=== PATIENT | male | born 1980 | race Caucasian/White ===

== ENCOUNTER 2025-07-24 11:04 | Emergency (ER) | payer BC, SELFPAY ==
[2025-07-24 11:08] VITALS: BP 133/80
--- NOTE | 2025-07-24 11:23 | ED.GENMED ---
History of Present Illness
General
Chief Complaint: Cold/Flu/URI Symptoms
Source: patient
Exam Limitations: none
Time Seen by Provider: 07/24/25 11:20
Nursing documentation reviewed up to this point in time: agreed with
History of Present Illness
History of Present Illness:
Patient is a 45-year-old male who presents to the ER for evaluation. Patient has had URI symptoms he has had cold symptoms for the past several days mostly cough, chills. He woke up in the the middle of the night to walk to bathroom and did not
feel well and reports passed out. He does believe he hit his head on the floor. Patient denies any nausea or vomiting. Mild headache. He does feel still weak and has the chills. He has not on blood thinners. Pt is not a smoker. Denies any chest
pain/shortness of breath .
Phy Exam
General Physical Exam
General Presentation: no apparent distress
General age: appears stated age
General Skin: warm and dry
General Habitus: normal
General Mental: alert
General Hydration: appears well hydrated
ENT Exam
ENT Exam: neck supple
Cardiovascular Exam
Cardiovascular Exam: regular rate/rhythm, no murmur and normal peripheral pulses
Pulmonary Exam
Pulmonary Exam: lungs clear and no respiratory distress
Neurological Exam
Neurological Exam: alert and oriented x3
Musculoskeletal Exam
Musculoskeletal Exam: full ROM
Skin Exam
Skin Exam: normal color and warm/dry
Psychiatric Exam
Psychiatric Exam: normal mood/affect
Course
Orders/Labs/Results
Orders:
Orders
07/24/25 11:49
IV Insert/Care/Rem.- Treatment PRN
0.9% Sodium Chloride 1000 ml [Nss] 1,000 ml IV BOLUS
Ketorolac [Toradol] 15 mg IV NOW STA
07/24/25 11:50
Electrocardiogram (*1) Stat
Reason for Study: Abdominal Pain
EKG- Treatment ONCE
07/24/25 11:51
CT Head W/o Iv Contrast Urgent
Comment:
Reason For Exam: trauma syncope head injury
07/24/25 12:12
COVID-19 Antigen Urgent
Source: Nasal Swab
Complete Blood Count/With Diff Urgent
Comprehensive Metabolic Panel Urgent
Influenza A+B Rapid Molecular Urgent
JULIAN Source: Nasal Swab
Specimen Description:
07/24/25 12:19
Chest [CR Chest - 2 Views ] Urgent
Comment:
Reason For Exam: cough fevers syncope
07/24/25 13:35
Azithromycin [Zithromax] 500 mg PO NOW STA
07/24/25 13:51
Cefdinir [Omnicef] 300 mg PO NOW STA
Abnormal Lab Results
07/24/25
12:12
MPV 10.7 H fL
(7.4-10.4)
Absolute Neuts (auto) 8.7 H 10^3/uL
(1.4-6.5)
Absolute Lymphs (auto) 0.9 L 10^3/uL
(1.2-3.4)
Absolute Monos (auto) 1.2 H 10^3/uL
(0.1-0.6)
Neutrophils % 80.3 H %
(42.2-75.2)
Lymphocytes % 8.1 L %
(20.5-51.1)
Monocytes % 11.2 H %
(1.7-9.3)
Sodium 132 L mmol/L
(135-145)
Glucose 106 H mg/dl
(70-99)
07/24/25 12:12
07/24/25 12:12
Vital Signs
Initial and Last Documented VS:
Initial Vital Signs
Temp Pulse Resp BP Pulse Ox
99.6 F 100 16 133/80 98
07/24/25 11:08 07/24/25 11:08 07/24/25 11:08 07/24/25 11:08 07/24/25 11:08
Last Documented Vital Signs
Temp Pulse Resp BP Pulse Ox
99.6 F 85 16 114/67 98
07/24/25 11:08 07/24/25 13:34 07/24/25 13:34 07/24/25 13:34 07/24/25 13:34
MDM/Problems Addressed
Differential Diagnosis Includes:
Not limited to viral syndrome, influenza, COVID, pneumonia, vasovagal syncope
MDM/Problems Addressed:
45-year-old male presents today for evaluation. As documented patient has had URI symptoms for the past several days did not feel well in the middle of the night and when he walked to the bathroom passed out. Likely vasovagal. Patient presents
awake alert no acute distress he is well-appearing low-grade temp of 99.6 with a normal white count normal electrolytes sodium very minimally low at 132 otherwise patient has normal electrolytes. His CT head is negative. His EKG is normal sinus
rhythm. Chest x-ray incidentally does show a very small likely subtle pneumonia in the right upper lobe. With cough and chills we will treat with cefdinir and Z-Carrillo. syncope likely vasovagal. Patient was given fluids and Toradol here feeling
improved stable for discharge home.
*Radiology
Radiology exam reviewed: radiology read reviewed
*Pulse Oximetry
SaO2: 98
Oxygen Mode of Delivery: Room air
Patient hypoxic: no
*EKG
Interpreted by ED Provider?: Yes
Interpretation: normal
Comparison EKG: no comparison EKG present
Heart Rate: 91
Rate: normal
Rhythm: sinus
Ischemia: no ischemia
*Critical Care Note
Total Time (30-74mins, 75-104mins- exclusive of procedures): Not Applicable
ED Attending Note
-
Portions of this chart may have been created with voice recognition software.� Occasional wrong word or��sound alike� substitutions may have occurred due to the inherent limitations of voice recognition software.
Discharge Plan
Departure
Patient Disposition: Home (Routine Discharge)
Date of Disposition: 07/24/25
Time of Disposition: 13:54
Patient with high blood pressure during this ER visit?: No
Condition: Fair
Covid-19: Not Applicable
Discharge Problem:
Pneumonia
Instructions: Pneumonia in adults (DC)
Prescriptions:
New
cefdinir 300 mg capsule
300 mg PO BID Qty: 20 0RF
azithromycin [Zithromax] 250 mg tablet
250 mg PO DAILY Qty: 4 0RF
Referrals:
UNKNOWN - PT NOT,INTERVIEWE [Family Provider]
Activity Restrictions/Additional Instructions:
As discussed your x-ray showed mild pneumonia in the right upper lobe. You were given first dose of antibiotics here in the ER and prescriptions were sent to your pharmacy take as directed. Stay well-hydrated. You may take ibuprofen and Tylenol
as needed for fever chills body aches. Follow-up with your family doctor in the next 2-3 days for reevaluation return if any worsening of symptoms.
Interventions
Interventions:
*Risk Screen - Suicide Last Done: 07/24/25 11:08
*General Assessment Last Done: 07/24/25 11:08
*Neglect/Abuse Screening Last Done: 07/24/25 11:08
*ED COVID-19 Vaccine History Last Done: 07/24/25 11:08
*ED Influenza Vaccine History Last Done: 07/24/25 11:08
ED- Pulmonary Assessment Last Done: 07/24/25 11:35
Discharge Date and Time
Print Language: EQUATORIAL GUINEAN
[2025-07-24 11:35] VITALS: BMI 24.4
[2025-07-24] MEDS: TORADOL 15 MG IV (12:17)
[2025-07-24] MEDS: NSS 1000 IV (12:17)
[2025-07-24 12:21] LABS: Hematocrit 41.9 % (39.0-52.0); Hemoglobin 14.3 g/dL (13.0-18.0); Mean Corp Hgb Conc. 34.1 g/dL (33.0-37.0); Mean Corpuscular Volume 87.7 fL (80.0-94.0); Nucleated Red Blood Cells % 0 % (-); Platelet Count 161 10^3/uL (130-400); Red Cell Dist. Width 12.0 % (11.5-14.5)
[2025-07-24 12:38] LABS: COVID-19 Antigen Negative (Negative)
[2025-07-24 12:39] LABS: ALT (SGPT) 34 U/L (0-50); AST (SGOT) 29 U/L (17-59); Albumin 4.5 g/dl (3.5-5.0); Alkaline Phosphatase 45 U/L (38-126); Blood Urea Nitrogen 11 mg/dl (9-20); Calcium 9.2 mg/dl (8.4-10.2); Carbon Dioxide 30 mmol/L (22-30); Chloride 98 mmol/L (98-107); Estimated Creatinine Clearance 118 ml/min; Glucose 106 mg/dl (70-99); Potassium 4.0 mmol/L (3.5-5.1); Sodium 132 mmol/L (135-145); Total Protein 7.0 g/dl (6.3-8.2); eGFR > 60.00
[2025-07-24 13:34] VITALS: BP 114/67
[2025-07-24] MEDS: ZITHROMAX 500 MG PO (13:58)
[2025-07-24] MEDS: OMNICEF 300 MG PO (13:58)
== END 2025-07-24 14:14 | disposition home or self-care (01) ==
LOC: EMR 11:04
PROVIDERS: Nurse Practitioner; EMERGENCY PHYSICIAN Emergency Medicine
DX: J18.9 Pneumonia, unspecified organism (principal)
CPT/HCPCS: 99284; 96374; 96361; 70450; 71046; 80053; 85025; 87502; 87811; 93005